=== PATIENT | female | born 1990 | race Caucasian/White ===

== ENCOUNTER 2022-10-05 08:00 | Outpatient (REF) | payer MEDICAID, SELFPAY ==
--- NOTE | 2022-10-05 10:51 | MHC.AU.HA1 ---
Hearing Aid Evaluation Date of Visit: 10/05/22 Historical Information:Description of Hearing: Normal hearing left ear; Within normal at 250 and 500 Hz precipitously sloping to profound sensorineural hearing loss with poor speech discrimination ability. Test and medical clearance from [facility]. Summary: Ruchi reportedly first noticed the hearing loss in her right ear in middle school. She continually had her ears cleaned of wax with no improvement in her hearing; however, she did not have a formal, diagnostic hearing evaluation until about six years ago. Amplification was recommended at that time; however, Ruchi was not mentally prepared to pursue hearing aids. More recently, she has been experiencing increased difficulty hearing and understanding in a variety of listening environments, particularly in the car as well as at work, especially when her poorer ear is facing the speaker. She reportedly has difficulty localizing sounds as well as deciphering speech in the presence of background noise. Ruchi is now ready to trial amplification due these difficulties and seems motivated to use and adapt to a CROS system. The etiology of Ruchi's unilateral hearing loss in currently unknown; however, she is reportedly waiting for an MRI to be schedule. Hearing Aid Prescription: Based on the individual?s shared listening needs, communication environments, dexterity, desire for connectivity, and personal preferences, the following prescription for amplification has been made: Right ear: Make, Model, Color: Phonak CROS P-R Battery Size: Rechargeable Monorail Charger Operator/Slim Tube: 1 Cros Wire Type of Earmold/Dome/CShell/SlimTip: Small open dome Left ear: Left ear prescription to be same as Right Hearing Aid above: Make, Model, Color: Phonak [place] P70-R Battery Size: Rechargeable Monorail Charger Operator/Slim Tube: 1S Type of Earmold/Dome/CShell/SlimTip: Small open dome Plan of Care: Patient wishes to purchase hearing aids as prescribed Action Taken/Action Needed: Hearing Instrument Fitting to be scheduled when materials arrive Comments: *Need to wait to have [facility] Referral # before ordering hearing aids* Primary Diagnosis: H90.41 SNHL Unilateral Right Ear, W/Unrestricted Contralateral Hearing Signature: Provider: Kai Flynn, [facility]
== END 2022-10-05 08:01 | disposition home or self-care (01) ==
LOC: HO.HAP 08:00
PROVIDERS: Visit Provider Family Medicine
DX: Z46.1 Encounter for fitting and adjustment of hearing aid (principal); H90.41 Sensorineural hearing loss, unilateral, right ear, with unrestricted hearing on the contralateral side
CPT/HCPCS: 92591

== ENCOUNTER 2023-12-23 08:47 | Inpatient (IN) | payer OTHER, MEDICAID, SELFPAY ==
[2023-12-23] VITALS (7 sets, daily range): BP systolic 109–136; BP diastolic 58–73; PULSE 75–127; RESP 18–22; TEMP 37.1–37.6; O2SAT 92–99; BMI 23.0
--- NOTE | ~2023-12-23 | XR_ITS ---
EXAMINATION: XR CHEST CLINICAL INFORMATION: SOB COMPARISON: None TECHNIQUE: 2 views of the chest FINDINGS: Lines and tubes: None. Right lower lobe consolidation raising suspicion for bronchopneumonia, recommend follow-up radiographs to ensure resolution. No pleural effusion. No pneumothorax. Normal cardiomediastinal silhouette. XR/XR chest 2V IMPRESSION: Right lower lobe consolidation raising suspicion for bronchopneumonia, recommend follow-up radiographs to ensure resolution. Electronically signed by: Shea Garrett MD 12/23/2023 12:04 PM EDT
--- NOTE | 2023-12-23 09:06 | ECG_ITS ---
Test Reason : SOB Blood Pressure : / mmHG Vent. Rate : 111 BPM Atrial Rate : 111 BPM P-R Int : 144 ms QRS Dur : 064 ms QT Int : 474 ms P-R-T Axes : 060 040 047 degrees QTc Int : 644 ms Sinus tachycardia Nonspecific ST and T wave abnormality Prolonged QT Abnormal ECG No previous ECGs available Referred By: Margret Do Electronically Signed By:MERE SAUNDERS
--- NOTE | 2023-12-23 09:07 | ED_ITS ---
HPI - General Adult General Chief complaint: Dyspnea Stated complaint: diff breathing Time Seen by Provider: 12/23/23 09:07 Source: patient Mode of arrival: ambulatory Limitations: no limitations History of Present Illness ED Provider: Margret Do PA-C HPI narrative: Patient is a 33 year old assigned female at with a history of methadone use, tobacco use, and childhood asthma presenting to the emergency department today with shortness of breath. Patient states that over the last 3 days she has had increased congestion and shortness of breath. Patient denies any dizziness, lightheadedness, abdominal pain, nausea, vomiting, fever, chills, blurry vision, double vision, loss of vision, chest pain, back pain, night sweats, pain with urination, increased urinary frequency, increased urinary urgency, blood in her urine or stool, syncope or a near syncopal episode, recent trauma or falls, bowel incontinence, bladder incontinence, or any other complaints at this time. Onset (ago): day(s) (3) Relieving factors: none Exacerbating factors: none Associated symptoms: shortness of breath Treatments prior to arrival: none Related Data Home Medications ?Medication ?Instructions ?Recorded ?Confirmed methadone 10 mg/mL oral concentrate 55 mg PO DAILY 12/23/23 Allergies Allergy/AdvReac Type Severity Reaction Status Date / Time No Known Allergies Allergy Verified 12/23/23 08:54 Review of Systems 2 Constitutional: Constitutional: Reports no additional constitutional complaints, Denies chills, Denies fever(s) and Denies night sweats Eyes: Eyes: Reports no additional eye complaints, Denies blurry vision, Denies change in vision, Denies diplopia, Denies eye discharge, Denies loss of vision and Denies eye pain ENT: Denies dizziness and Reports nasal congestion Cardiovascular: Cardiovascular: Reports no additional cardiovascular complaints, Denies chest pain, Denies lightheadedness, Denies Loss of Consciousness and Reports dyspnea Respiratory: Respiratory: Reports no additional respiratory complaints and Reports dyspnea Gastrointestinal: Gastrointestinal: Reports no additional gastrointestinal complaints, Denies abdominal pain, Denies melena, Denies hematochezia, Denies change in bowel habits and Denies change in stool character Genitourinary: Genitourinary: Denies hematuria, Denies urinary frequency, Denies dysuria, Denies urinary incontinence, Denies urinary hesitancy and Denies urinary urgency Musculoskeletal: Musculoskeletal: Reports no additional musculoskeletal complaints, Denies numbness and Denies tingling Neurologic: Denies dizziness, Denies loss of vision, Denies numbness and Denies tingling Psychiatric: Psychiatric: Reports no additional psychiatric complaints Endocrine: Endocrine: Reports no additional endocrine complaints Hematologic/Lymphatic: Hematologic/Lymphatic: Reports no additional hematologic/lymphatic complaints Allergic/Immunologic: Allergic/Immunologic: Reports no additional allergic/immunologic complaints [facility] Past Medical History Attestation statement: The following information was validated with the patient. Source: old records reviewed and nursing notes reviewed Social History Social History Smoked in Last 30 Days: Yes Use of substances other than those prescribed or required for medical reasons: No Advance Directives: No Advance Directives Information Provided: Yes Do you have a plan to hurt others: No Plan Physical Exam ED Vital Signs: Vital Signs - 24 hr 12/23/23 08:52 12/23/23 09:31 12/23/23 11:34 Temperature 98.7 F 99.6 F Pulse Rate 117 H 127 H 105 H Respiratory Rate 22 H 18 21 H Blood Pressure 123/58 L 122/68 Pulse Oximetry 92 93 Oxygen Delivery Method Room Air Room Air 12/23/23 12:48 12/23/23 13:11 Temperature 99.2 F Pulse Rate 119 H 90 Respiratory Rate 22 H 20 Blood Pressure 136/73 Pulse Oximetry 95 94 Oxygen Delivery Method Room Air Room Air BMI result Body Mass Index 23.0 Const General: cooperative, no acute distress, alert and awake Nutritional Appearance: well nourished Orientation/consciousness: patient oriented x3 Limitations: no limitations [facility] Head: Yes normal to inspection and Yes atraumatic Ears: hearing grossly normal bilaterally and external ears normal General nose exam: Normal external nose present, no nasal discharge noted and no epistaxis Face and sinus: Yes normal facial exam, No abrasion and No laceration Mouth: Normal oral and palatal mucosa present, no drooling and no muffled voice Eyes General: appearance normal, both eyes and all related structures Periorbital: periorbital findings normal Eyelids: Yes eyelids normal Conjunctivae: conjunctivae normal Pupils: Equal, round and reactive pupils present EOM: EOMs intact bilaterally Neck Neck: Yes normal visual inspection, Yes full ROM and Yes no lymphadenopathy Chest Chest palpation & inspection: normal inspection of the chest Resp Effort & Inspection: normal respiratory effort and able to speak in complete sentences Auscultation: diminished lung sounds diffuse GI Inspection: Yes normal to inspection Neuro General: patient oriented x3 and moves all extremities Cranial nerves: Yes Equal, round and reactive pupils present Cognition (Neuro): normal cognition Extrem General: Yes normal to inspection, Yes full ROM and Yes capillary refill normal Psych Appearance: grossly normal Mental Status: mental status grossly normal Affect: normal affect Attitude: cooperative Thought process: Normal thought process present Thought content: Normal thought content present Insight: Good insight present (Psych) Medications Administered Generic Name Dose Route Start Last Admin Trade Name Freq PRN Reason Stop Dose Admin Azithromycin 500 mg/ Sodium 250 mls @ 125 mls/hr 12/23/23 12:52 12/23/23 13:48 Chloride IV 12/23/23 14:51 125 mls/hr ONCE ONE Administration Discontinued Medications Generic Name Dose Route Start Last Admin Trade Name Freq PRN Reason Stop Dose Admin Albuterol/Ipratropium 3 ml 12/23/23 09:29 12/23/23 09:31 Albuterol/Iprat 2.5/0.5mg 3 Ml Ampul.Neb INHALE 12/23/23 09:30 3 ml ONCE ONE Administration Magnesium Sulfate/Dextrose 1 gm in 100 mls @ 100 mls/hr 12/23/23 10:58 12/23/23 12:32 Magnesium Sulfate/D5w IV 12/23/23 11:57 Infused ONCE ONE Infusion Sodium Chloride 1,000 mls @ 999 mls/hr 12/23/23 11:00 12/23/23 12:32 Ns IV 12/23/23 12:00 Infused .Q1H1M ANISH Infusion Ceftriaxone Sodium 1 gm/ 50 mls @ 100 mls/hr 12/23/23 12:52 12/23/23 13:18 Sodium Chloride IV 12/23/23 13:21 100 mls/hr ONCE ONE Administration Methylprednisolone Sodium Succinate 60 mg 12/23/23 09:13 12/23/23 10:00 Methylprednisolone Sod Succ 125 Mg/2 Ml Vial IVPUSH 12/23/23 09:14 60 mg ONCE ONE Administration Medical Decision Making Medical Decision Making MDM Narrative: Patient is a 33 year old assigned female at with a history of methadone use, tobacco use, and childhood asthma presenting to the emergency department today with increased shortness of breath. Patient's physical exam was as noted in the physical exam portion of this note. Patient's blood work was unremarkable. Patient's urine showed no acute process. Patient's EKG was unremarkable. Patient's chest x-ray showed a developing pneumonia. I explained my physical exam findings as well as all test results to the patient. I answered all questions asked by the patient. Patient received IV solu-medrol, magnesium, and multiple breathing treatments but continued to have shortness of breath. I spoke with the hospitalist team who agreed to admission. Patient's clinical presentation is not consistent with sepsis (@1330). Patient verbalized agreement and understanding with this treatment plan and admission. Differential Diagnosis Differential Diagnoses: The differential diagnosis associated with the presentation includes SOB Pneumonia Asthma exacerbation Admission/Observation Consideration of admission/observation: Escalation of care including admission/observation considered Patient admitted. Consult Healthcare Provider Management of the patient was discussed with: Hospitalist (agreed to admission as noted in the MDM Rationale portion of this note.) Lab Data [facility] Lab Attestation statement: I reviewed the patient's lab results. My interpretation of these results are in the MDM Rationale portion of this note. 12/23/23 09:59 12/23/23 09:59 Labs: Lab Results 12/23/23 12/23/23 12/23/23 Range/Units 09:59 10:04 12:55 WBC 10.8 (4.8-10.8) X10*3/uL RBC 4.23 (4.20-5.50) X10*6/uL Hgb 12.7 (12.0-16.0) g/dl Hct 36.1 L (37.0-47.0) % MCV 85.3 (80.0-98.0) fL MCH 30.0 (27.0-33.0) pg MCHC 35.2 H (31.0-35.0) g/dl RDW 11.4 (11.0-16.0) % Plt Count 219 (160-400) X10*3/uL MPV 10.2 (9.4-12.3) fL Immature Gran % (Auto) 0.5 H (0.0-0.4) % Neut % (Auto) 86.3 H (45-73) % Lymph % (Auto) 7.8 L (20-40) % [place] % (Auto) 5.0 (2-11) % Eos % (Auto) 0.1 (0-4) % Baso % (Auto) 0.3 (0-2) % Lymph # (Auto) 0.8 L (1.2-4.9) X10*3/uL [place] # (Auto) 0.5 (0.1-1.2) X10*3/uL Eos # (Auto) 0.0 (0.0-0.4) X10*3/uL Baso # (Auto) 0.0 (0.0-0.2) X10*3/uL Abs Immat Gran (auto) 0.05 H (0.00-0.03) X10*3/uL Absolute Neuts (auto) 9.3 H (2.0-8.3) x10*3/uL Absolute Nucleated RBC 0.000 (0.0-0.012) X10*3/uL Nucleated RBC % (auto) 0.0 (0.0-0.2) /100WBC D-Dimer High Sensitivty 186 NG/ML VBG pH 7.36 (7.32-7.43) VBG pCO2 50 mmHg VBG pO2 36 mmHg VBG HCO3 28 H (22-26) mmol/L VBG O2 Saturation 62.0 % VBG Base Excess 2.3 mmol/L Sodium 139 (135-145) mmol/L Potassium 3.5 (3.3-5.1) mmol/L Chloride 104 (96-108) mmol/L Carbon Dioxide 26 (22-29) mmol/L Anion Gap 13 (12-20) BUN 8 L (9-16) mg/dL Creatinine 0.85 (0.5-1.4) mg/dL Estim Creat Clear Calc 90.6 Estimated GFR > 60 Random Glucose 110 (60-115) mg/dL Calcium 9.2 (8.4-10.2) mg/dL Magnesium 1.9 (1.6-2.6) mg/dL Total Bilirubin 0.4 (0.0-1.0) mg/dL AST 16 (5-31) U/L ALT 12 (0-31) U/L Alkaline Phosphatase 58 (39-117) U/L Troponin I High Sens < 2.7 (<3.5-17.0) ng/L Total Protein 7.4 (6.5-8.0) g/dL Albumin 4.4 (3.5-5.0) g/dL Urine Color Yellow Urine Appearance Clear Urine pH 6.0 (5.0-9.0) Ur Specific [place] 1.010 (1.005-1.025) Urine Protein Negative (Neg-Trace) mg/dL Urine Glucose (UA) Negative (Negative) mg/dL Urine Ketones Negative (Negative) mg/dL Urine Blood Negative (Negative) Urine Nitrite Negative (Negative) Ur Leukocyte Esterase Trace H (Negative) Urine RBC 0-2 (0-2) /HPF Urine WBC 0-5 (0-5) /HPF Ur Squamous Epith Cells 6-10 (0-2) /HPF Urine Bacteria None Seen (None Seen) Hyaline Casts 0-2 (0-2) /LPF Influenza Type A (PCR) NEGATIVE (Negative) Influenza Type B (PCR) NEGATIVE (Negative) RSV RNA Qual (PCR) NEGATIVE (Negative) SARS-CoV-2 RNA (RT-PCR) NEGATIVE (Negative) Independent Interpretation I performed an independent interpretation of an: EKG and Plain X-Ray Interpretation: My interpretation is in agreement with the radiologist's impression of this imaging study. L EXAMINATION: XR CHEST CLINICAL INFORMATION: SOB COMPARISON: None TECHNIQUE: 2 views of the chest FINDINGS: Lines and tubes: None. Right lower lobe consolidation raising suspicion for bronchopneumonia, recommend follow-up radiographs to ensure resolution. No pleural effusion. No pneumothorax. Normal cardiomediastinal silhouette. XR/XR chest 2V IMPRESSION: Right lower lobe consolidation raising suspicion for bronchopneumonia, recommend follow-up radiographs to ensure resolution. Electronically signed by: Shea Garrett MD 12/23/2023 12:04 PM EDT Dictated By: Shea Garrett MD Signed By: Electronically signed by Shea Garrett MD 12/23/23 1204 Vent. Rate: 111 BPM Atrial Rate: 111 BPM P-R Int: 144 ms QRS Dur: 064 ms QT Int: 474 ms P-R-T Axes: 060 040 047 degrees QTc Int: 644 ms Sinus tachycardia Prolonged QT Abnormal ECG No previous ECGs available DD/ 1024 Radiology Impression Discussion of test interpretation with radiology: I have reviewed the radiologist's reading. Critical Care Time Critical Care Time Critical Care Time: Yes Total Critical Care Time: 49 Attestation: I spent 49 minutes of Critical Care Time with this patient. This does not include time spent on separately reported billable procedures. Discharge Plan Discharge Clinical Impression: Pneumonia, Asthma with exacerbation Patient Disposition: Admitted As Inpatient
[2023-12-23] MEDS: Albuterol/Iprat 2.5/0.5MG 3 ML AMPUL.NEB INHALE (09:31)
--- NOTE | 2023-12-23 09:49 | PC.NURSE ---
Pt difficult IV access. Delay in medication. aware
[2023-12-23] MEDS: methylPREDNISolone Sod Succ 125 MG/2 ML VIAL 60 MG IVPUSH ×3 (10:00→21:12)
[2023-12-23 10:03] LABS: MANUAL DIFF FLAG NO
[2023-12-23 10:07] LABS: Venous Blood Gas Refer to POC result
[2023-12-23 10:08] LABS: VBG Base Excess 2.3 mmol/L; VBG HCO3 28 mmol/L (22-26); VBG pCO2 50 mmHg; VBG pH 7.36 (7.32-7.43); VBG pO2 36 mmHg
[2023-12-23 10:09] LABS: Basophils Percent Auto 0.3 % (0-2); Eosinophils Percent Auto 0.1 % (0-4); Hematocrit 36.1 % (37.0-47.0); Hemoglobin 12.7 g/dl (12.0-16.0); Imm Gran Abs Auto 0.05 X10*3/uL (0.00-0.03); Imm Gran Pct Auto 0.5 % (0.0-0.4); Lymphocytes Absolute Auto 0.8 X10*3/uL (1.2-4.9); Lymphocytes Percent Auto 7.8 % (20-40); Mean Corpuscular HGB Conc 35.2 g/dl (31.0-35.0); Mean Corpuscular Volume 85.3 fL (80.0-98.0); Mean Platelet Volume 10.2 fL (9.4-12.3); Monocytes Absolute Auto 0.5 X10*3/uL (0.1-1.2); Neutrophils Absolute Auto 9.3 x10*3/uL (2.0-8.3); Neutrophils Percent Auto 86.3 % (45-73); Platelet Count 219 X10*3/uL (160-400); Red Blood Count 4.23 X10*6/uL (4.20-5.50); Red Cell Distribution Width 11.4 % (11.0-16.0); White Blood Count 10.8 X10*3/uL (4.8-10.8)
[2023-12-23 10:22] LABS: D Dimer High Sensitivity 186 NG/ML
[2023-12-23 10:25] LABS: Alanine Aminotransferase 12 U/L (0-31); Albumin Level 4.4 g/dL (3.5-5.0); Alkaline Phosphatase 58 U/L (39-117); Anion Gap 13 (12-20); Aspartate Amino Transferase 16 U/L (5-31); Bilirubin Total 0.4 mg/dL (0.0-1.0); Blood Urea Nitrogen 8 mg/dL (9-16); Calcium 9.2 mg/dL (8.4-10.2); Carbon Dioxide 26 mmol/L (22-29); Chloride 104 mmol/L (96-108); Creatinine Clr Calc Pharmacy 90.6; Estimated Glomerular Filt Rate > 60; Glucose Random 110 mg/dL (60-115); Magnesium 1.9 mg/dL (1.6-2.6); Potassium 3.5 mmol/L (3.3-5.1); Sodium 139 mmol/L (135-145); Total Protein 7.4 g/dL (6.5-8.0)
[2023-12-23 10:36] LABS: Troponin-I High Sensitivity < 2.7 ng/L (<3.5-17.0)
[2023-12-23 10:43] LABS: Influenza A PCR NEGATIVE (Negative); Influenza B PCR NEGATIVE (Negative); Resp Syncy Virus RNA Qual PCR NEGATIVE (Negative); SARS COV2 PCR INHOUSE NEGATIVE (Negative)
[2023-12-23] MEDS: 0.9 % Sodium Chloride 1,000 ML 999 ML IV (11:34)
[2023-12-23] MEDS: Magnesium Sulfate/D5W 1 GM/100 ML PIGGYBACK IV (11:34)
[2023-12-23 13:02] LABS: Appearance Urine Clear; Color Urine Yellow; Glucose Urine UA Negative (Negative); Leukocyte Esterase Urine Trace (Negative); Nitrite Urine Negative (Negative); UMIC TRIGGER UACC YES; Urine Blood Negative (Negative); Urine Ketones Negative (Negative); Urine Protein Negative (Neg-Trace)
--- NOTE | 2023-12-23 13:04 | PC.NURSE ---
pt ambulated around the ed and spo2 maintained 93-94% pt initially felt ok to go home but then walked to the bathroom and returned with increased work of breathing and sob, ls with coarse wheeze throughout, jacques WILEY aware and plan for admission
[2023-12-23 13:07] LABS: Bacteria Urine None Seen (None Seen); Hyaline Casts Urine 0-2 /LPF (0-2); RBC Urine 0-2 /HPF (0-2); WBC Urine 0-5 /HPF (0-5)
[2023-12-23] MEDS: cefTRIAXone sodium 1 GM in 0.9 % Sodium Chloride 50 ML IV (13:18)
[2023-12-23] MEDS: Azithromycin 500 MG in 0.9 % Sodium Chloride 250 ML 125 MG IV (13:48)
--- NOTE | 2023-12-23 13:52 | P.HPHOSP_ITS ---
History of Present Illness Date of Service: 12/23/23 Chief Complaint: Shortness of breath 33 year old assigned female at with a history of methadone use, tobacco use, and childhood asthma presenting to the emergency department today with shortness of breath. Patient states that over the last 3 days she has had increased congestion and shortness of breath. She states that over the last 24 hours her cough has become productive of green mucus. She admits to smoking 5 cigarettes a day. In the emergency room, chest x-ray consistent with right lower lobe infiltrate Review of Systems 2 Review of Systems: States chest pain with cough; none with exertion. States shortness of breath with minimal exertion Denies fever chills Denies nausea vomiting diarrhea PMFSH Social History Smoked in Last 30 Days: Yes Use of substances other than those prescribed or required for medical reasons: No Advance Directives: No Advance Directives Information Provided: Yes Do you have a plan to hurt others: No Plan Meds Allergies Allergy/AdvReac Type Severity Reaction Status Date / Time No Known Allergies Allergy Verified 12/23/23 08:54 Active Medications: Current Medications Acetaminophen (Acetaminophen 325 Mg Tablet) 650 mg PO Q6H PRN PRN Reason: Pain, Mild (Pain Scale 1-3), fever or headache Calcium Carbonate (Calcium Carbonate 750 Mg Tab.Chew) 750 mg PO Q4H PRN PRN Reason: Heartburn Enoxaparin Sodium (Enoxaparin Sodium 40 Mg/0.4 Ml Syringe) 40 mg SUBCUT Q24H ANISH Azithromycin 500 mg/ Sodium (Chloride) 250 mls @ 125 mls/hr IV ONCE ONE Stop: 12/23/23 14:51 Last Admin: 12/23/23 13:48 Dose: 125 mls/hr Magnesium Hydroxide (Milk Of Magnesia 30 Ml Oral.Susp) 30 ml PO DAILY PRN PRN Reason: Constipation Melatonin (Melatonin 3 Mg Tablet) 6 mg PO BEDTIME PRN PRN Reason: Insomnia Ondansetron HCl (Ondansetron Hcl 4 Mg/2 Ml Vial) 4 mg IVPUSH Q8H PRN PRN Reason: Nausea and Vomiting Sodium Chloride (0.9 % Sodium Chloride Flush 3 Ml Syringe) 3 ml IVFLUSH QSHIFT ANISH Physical Exam 2 Vital Signs and Narrative: Vital Signs: Last Vital Signs Temp 99.2 F 12/23/23 13:11 Pulse 90 12/23/23 13:11 Resp 20 12/23/23 13:11 BP 136/73 12/23/23 12:48 Pulse Ox 94 12/23/23 13:11 O2 Del Method Room Air 12/23/23 13:11 BMI result Body Mass Index 23.0 Const: Other: Awake alert able to speak in short sentences only Resp: Other: Diminished bilaterally with dense crackles right lower lobe; diffuse expiratory wheezes lower lobes. Accessory muscle use Cardio: Other: No S4; positive S1-S2; no S3 murmurs rubs or gallops GI: Other: Soft nontender nondistended normoactive bowel sounds Neuro: Other: Cranial nerves 2-12 grossly intact as tested. Motor is 5/5 all extremities. Sensation is intact. Gait not observed Extrem: Other: No edema bilaterally Results Labs 12/23/23 09:59 12/23/23 09:59 Labs: Laboratory Results - last 24 hr 12/23/23 12/23/23 12/23/23 09:59 10:04 12:55 MCV 85.3 MCH 30.0 MCHC 35.2 H RDW 11.4 Plt Count 219 MPV 10.2 Immature Gran % (Auto) 0.5 H Neut % (Auto) 86.3 H Lymph % (Auto) 7.8 L [place] % (Auto) 5.0 Eos % (Auto) 0.1 Baso % (Auto) 0.3 Lymph # (Auto) 0.8 L [place] # (Auto) 0.5 Eos # (Auto) 0.0 Baso # (Auto) 0.0 Abs Immat Gran (auto) 0.05 H Absolute Neuts (auto) 9.3 H Absolute Nucleated RBC 0.000 Nucleated RBC % (auto) 0.0 D-Dimer High Sensitivty 186 VBG pH 7.36 VBG pCO2 50 VBG pO2 36 VBG HCO3 28 H VBG O2 Saturation 62.0 VBG Base Excess 2.3 Anion Gap 13 Estim Creat Clear Calc 90.6 Estimated GFR > 60 Random Glucose 110 Calcium 9.2 Magnesium 1.9 Total Bilirubin 0.4 AST 16 ALT 12 Alkaline Phosphatase 58 Troponin I High Sens < 2.7 Total Protein 7.4 Albumin 4.4 Urine Color Yellow Urine Appearance Clear Urine pH 6.0 Ur Specific [place] 1.010 Urine Protein Negative Urine Glucose (UA) Negative Urine Ketones Negative Urine Blood Negative Urine Nitrite Negative Ur Leukocyte Esterase Trace H Urine RBC 0-2 Urine WBC 0-5 Ur Squamous Epith Cells 6-10 Urine Bacteria None Seen Hyaline Casts 0-2 Influenza Type A (PCR) NEGATIVE Influenza Type B (PCR) NEGATIVE RSV RNA Qual (PCR) NEGATIVE SARS-CoV-2 RNA (RT-PCR) NEGATIVE Imaging Radiologist's Impressions: Impressions Chest X-Ray 12/23/23 10:24 IMPRESSION: Right lower lobe consolidation raising suspicion for bronchopneumonia, recommend follow-up radiographs to ensure resolution. Electronically signed by: Shea Garrett MD 12/23/2023 12:04 PM EDT RP Assessment and Plan (1) Pneumonia: Qualifiers: Pneumonia type: due to unspecified organism Laterality: right Lung location: lower lobe of lung Qualified Code(s): J18.9 - Pneumonia, unspecified organism Status: Acute (2) Opioid use disorder: Status: Acute Plan 33-year-old female presents with proximally 48 hours of worsening cough shortness of breath and overall body aches which have progressed to productive cough of green sputum. Admits to remote history of childhood asthma however uses no inhalers. Endorses tobacco abuse. .. Five cigarettes a day 1. Right lower lobe pneumonia -ceftriaxone/azithromycin (1) -methylprednisolone 60 mg IV q.6 hours -titrate O2 to minimize retractions and keep sats greater than or equal to 92% -DuoNebs as needed q.4 hours while awake 2. Opioid use disorder -methadone 55 mg daily -will consult addiction Medicine to verify dosing Full code Lovenox Patient will require at least 2 midnights going forward for IV antibiotics to treat right lower lobe pneumonia. This can not be achieved a lesser acute setting Quality Stroke Does the patient have a stroke diagnosis?: No VTE Prior VTE?: No VTE Risk Level:: Medical - moderate - high VTE Device Contraindication: Treatment Not Indicated VTE Drug Contraindication: N/A - Med Ordered
--- NOTE | 2023-12-23 14:02 | PHA.MEDREC ---
Addendum entered by Darlyn Colón RPh 12/23/23 14:29: MED REC REVIEWED BY DYANA Original Note: Pharmacy Consult ? Medication Reconciliation Pharmacy has completed the medication reconciliation. Patient reports no medications besides methadone 55 mg last taken this morning from [facility]. She took robitussin last night to help with her symptoms but does not normally take.
[2023-12-23] MEDS: Enoxaparin Sodium 40 MG/0.4 ML SYRINGE SUBCUT (14:57)
[2023-12-23] MEDS: 0.9 % Sodium Chloride Flush 3 ML SYRINGE IVFLUSH (16:45)
--- NOTE | 2023-12-23 17:03 | PC.NURSE ---
verbal report given to overflow ALVIN Cook.
[2023-12-23] MEDS: ondansetron HCL 4 MG/2 ML VIAL IVPUSH (18:43)
--- NOTE | 2023-12-23 23:02 | PC.NURSE ---
pt resting comfortably at this time with eyes closed, breathing even and unlabored. minimal coughing tonight. no apparent distress noted. call espinal w/in reach
[2023-12-24] VITALS (8 sets, daily range): BP systolic 108–128; BP diastolic 54–63; PULSE 80–91; RESP 14–20; TEMP 36.1–36.7; O2SAT 93–97; BMI 22.9
--- NOTE | 2023-12-24 01:29 | PC.NURSE ---
This RN assumed care of patient @2300. PT resting comfortably in room. eyes closed, resp even- unlabored. No cough, apparent distress noted. Call espinal within reach. Plan of care ongoing.
--- NOTE | 2023-12-24 02:32 | MHC.EDTECH ---
patient standby assisted to bathroom. independent with care. patient also requested pain medication.
[2023-12-24] MEDS: methylPREDNISolone Sod Succ 125 MG/2 ML VIAL 60 MG IVPUSH ×4 (03:40→19:30)
[2023-12-24] MEDS: 0.9 % Sodium Chloride Flush 3 ML SYRINGE IVFLUSH ×4 (03:41→23:29)
--- NOTE | 2023-12-24 07:34 | HE.PHANOTE ---
Addendum entered by Barbara Little [facility] 12/24/23 07:39: iLz's dose is 55mg. Original Note: Methadone: Pt receives from [facility], denae Puckett [phone], . Per Laura Jones at facility: last dose given Dec 18, 2023 with 6 take home bottles. Her last dose taken was 12/23/23 in the morning.
[2023-12-24] MEDS: methADONE HCl 20 MG/2 ML ORAL.CONC 55 MG PO (08:08)
[2023-12-24] MEDS: Azithromycin 500 MG in 0.9 % Sodium Chloride 250 ML 125 MG IV (08:51)
[2023-12-24] MEDS: Albuterol/Iprat 2.5/0.5MG 3 ML AMPUL.NEB INHALE ×3 (11:20→20:01)
--- NOTE | 2023-12-24 12:46 | HO.PM.IMPN ---
Subjective Subjective Date of Service: 12/24/23 Interval History: Breathing somewhat improved however only able to speak in short sentences Review of Systems States chest pain with cough; none with exertion. States shortness of breath with minimal exertion Denies fever chills Denies nausea vomiting diarrhea Physical Exam Vital Signs: Vital Signs: Last Vital Signs Temp 97.0 F 12/24/23 09:00 Pulse 80 12/24/23 11:25 Resp 14 12/24/23 11:25 BP 112/62 12/24/23 09:00 Pulse Ox 93 12/24/23 09:00 O2 Del Method Nasal Cannula 12/24/23 09:00 O2 Flow Rate 2.0 12/24/23 09:00 BMI result Body Mass Index 22.9 Const: Other: Awake alert able to speak in short sentences only Resp: Other: Diminished bilaterally with dense crackles right lower lobe; diffuse expiratory wheezes lower lobes. Accessory muscle use Cardio: Other: No S4; positive S1-S2; no S3 murmurs rubs or gallops GI: Other: Soft nontender nondistended normoactive bowel sounds Neuro: Other: Cranial nerves 2-12 grossly intact as tested. Motor is 5/5 all extremities. Sensation is intact. Gait not observed Extrem: Other: No edema bilaterally Objective Data Active Medications Acetaminophen (Acetaminophen 325 Mg Tablet) 650 mg PO Q6H PRN PRN Reason: Pain, Mild (Pain Scale 1-3), fever or headache Albuterol/Ipratropium (Albuterol/Iprat 2.5/0.5mg 3 Ml Ampul.Neb) 3 ml INHALE RQ4H WHILE AWAKE [facility] Last Admin: 12/24/23 11:20 Dose: 3 ml Documented By: MARLYN Calcium Carbonate (Calcium Carbonate 750 Mg Tab.Chew) 750 mg PO Q4H PRN PRN Reason: Heartburn Enoxaparin Sodium (Enoxaparin Sodium 40 Mg/0.4 Ml Syringe) 40 mg SUBCUT Q24H [facility] Last Admin: 12/23/23 14:57 Dose: 40 mg Documented By: ERA Ceftriaxone Sodium 1 gm/ (Sodium Chloride) 50 mls @ 100 mls/hr IV Q24H [facility] Last Admin: 12/23/23 14:58 Dose: Not Given Documented By: ERA Non-Admin Reason: Previously Administered Azithromycin 500 mg/ Sodium (Chloride) 250 mls @ 125 mls/hr IV DAILY [facility] Last Infusion: 12/24/23 10:52 Dose: Infused Documented By: JENELLE Magnesium Hydroxide (Milk Of Magnesia 30 Ml Oral.Susp) 30 ml PO DAILY PRN PRN Reason: Constipation Melatonin (Melatonin 3 Mg Tablet) 6 mg PO BEDTIME PRN PRN Reason: Insomnia Methylprednisolone Sodium Succinate (Methylprednisolone Sod Succ 125 Mg/2 Ml Vial) 60 mg IVPUSH Q6H [facility] Last Admin: 12/24/23 08:45 Dose: 60 mg Documented By: VINICIUS Ondansetron HCl (Ondansetron Hcl 4 Mg/2 Ml Vial) 4 mg IVPUSH Q8H PRN PRN Reason: Nausea and Vomiting Last Admin: 12/23/23 18:43 Dose: 4 mg Documented By: HARRY Sodium Chloride (0.9 % Sodium Chloride Flush 3 Ml Syringe) 3 ml IVFLUSH QSHIFT [facility] Last Admin: 12/24/23 08:50 Dose: 3 ml Documented By: VINICIUS Labs 12/23/23 09:59 12/23/23 09:59 Labs: Laboratory Results - last 24 hr 12/23/23 12:55 Urine Color Yellow Urine Appearance Clear Urine pH 6.0 Ur Specific [place] 1.010 Urine Protein Negative Urine Glucose (UA) Negative Urine Ketones Negative Urine Blood Negative Urine Nitrite Negative Ur Leukocyte Esterase Trace H Urine RBC 0-2 Urine WBC 0-5 Ur Squamous Epith Cells 6-10 Urine Bacteria None Seen Hyaline Casts 0-2 Assessment and Plan (1) Pneumonia: Status: Acute (2) Asthma with exacerbation: Status: Acute Plan 33-year-old female presents with proximally 48 hours of worsening cough shortness of breath and overall body aches which have progressed to productive cough of green sputum. Admits to remote history of childhood asthma however uses no inhalers. Endorses tobacco abuse. .. Five cigarettes a day 1. Right lower lobe pneumonia -ceftriaxone/azithromycin (2) -methylprednisolone 60 mg IV q.6 hours.. Additional 24 hours and re-evaluate -titrate O2 to minimize retractions and keep sats greater than or equal to 92% -DuoNebs as needed q.4 hours while awake 2. Opioid use disorder -methadone 55 mg daily -will consult addiction Medicine to verify dosing Full code Lovenox Patient will require at least 2 midnights going forward for IV antibiotics to treat right lower lobe pneumonia. This can not be achieved a lesser acute setting Quality Stroke Does the patient have a stroke diagnosis?: No VTE Prior VTE?: No VTE Risk Level:: Medical - moderate - high VTE Device Contraindication: Treatment Not Indicated VTE Drug Contraindication: N/A - Med Ordered
[2023-12-24] MEDS: Enoxaparin Sodium 40 MG/0.4 ML SYRINGE SUBCUT (13:02)
[2023-12-24] MEDS: cefTRIAXone sodium 1 GM in 0.9 % Sodium Chloride 50 ML IV (13:09)
--- NOTE | 2023-12-24 16:02 | MHC.CM.PN ---
PT REPORTS SHE LIVES WITH HER S/O AND IS INDEPENDENT WITH CARE SHE HAS NO DME AND NO SERVICES PT DECLINES TO COMPLETE A HCP PCP: DIAN MCCLAIN DCP: HOME NO SERVICES VIA PRIVATE TRANSPORT
[2023-12-24] MEDS: Melatonin 3 MG TABLET 6 MG PO (21:09)
[2023-12-25] MEDS: methylPREDNISolone Sod Succ 125 MG/2 ML VIAL 60 MG IVPUSH ×2 (02:11→07:26)
[2023-12-25 03:39] VITALS: BP 117/60; PULSE 63; RESP 18; TEMP 36.6; O2SAT 96
[2023-12-25] MEDS: methADONE HCl 20 MG/2 ML ORAL.CONC 55 MG PO (07:25)
[2023-12-25] MEDS: 0.9 % Sodium Chloride Flush 3 ML SYRINGE IVFLUSH (07:26)
[2023-12-25 07:33] VITALS: BP 119/62; PULSE 66; RESP 18; TEMP 36.3; O2SAT 94
[2023-12-25] MEDS: Albuterol/Iprat 2.5/0.5MG 3 ML AMPUL.NEB INHALE ×2 (07:54→11:44)
[2023-12-25 07:55] VITALS: PULSE 74; RESP 18; O2SAT 93
[2023-12-25] MEDS: Azithromycin 500 MG in 0.9 % Sodium Chloride 250 ML 125 MG IV (08:45)
--- NOTE | 2023-12-25 10:40 | MHC.CM.PN ---
Per MD rounds patient medically cleared for dc home self care. Patient's boyfriend will transport home. RN aware.
[2023-12-25 11:46] VITALS: PULSE 70; RESP 15; O2SAT 93
--- NOTE | 2023-12-25 12:24 | P.DS_ITS ---
DS: Providers Provider Date of Service: 12/25/23 Date of admission: 12/23/23 13:47 Date of discharge: 12/25/23 Primary care physician: Micah Arreola MD DS: Diagnosis Discharge Diagnosis (1) Pneumonia: Status: Acute (2) Asthma with exacerbation: Status: Acute DS: Summary Hospital Course Hospital Course: 33 year old assigned female at with a history of methadone use, tobacco use, and childhood asthma presenting to the emergency department today with shortness of breath. Patient states that over the last 3 days she has had increased congestion and shortness of breath. She states that over the last 24 hours her cough has become productive of green mucus. She admits to smoking 5 cigarettes a day. In the emergency room, chest x-ray consistent with right lower lobe infiltrate Hospital course Patient admitted to general medical floor and started on ceftriaxone/azithromycin and IV methylprednisolone. Over the course of the next 48 hours she improved to the point of no oxygen requirement and requesting discharge. At this point she is medically acceptable for discharge and she will be discharged to complete an oral course of doxycycline along with prednisone taper. Respiratory therapy has arrange for a nebulizer to be delivered to her house and Mati have been called into the pharmacy Time Attestation Discharge Coordination Time (in mins): 35 Quality: Safe Use of Opioids Does Pt have an Active Cancer Diagnosis on the Problem List?: No Quality: Stroke Does the patient have a stroke diagnosis?: No Physical Exam Vital Signs: Vital Signs: Last Vital Signs Temp 97.4 F 12/25/23 07:33 Pulse 70 12/25/23 11:46 Resp 15 12/25/23 11:46 BP 119/62 12/25/23 07:33 Pulse Ox 94 12/25/23 07:33 O2 Del Method Room Air 12/25/23 07:33 O2 Flow Rate 2.0 12/24/23 09:00 BMI result Body Mass Index 22.9 Const: Other: Awake alert able to speak in short sentences only Resp: Other: Diminished bilaterally with dense crackles right lower lobe; diffuse expiratory wheezes lower lobes. Accessory muscle use Cardio: Other: No S4; positive S1-S2; no S3 murmurs rubs or gallops GI: Other: Soft nontender nondistended normoactive bowel sounds Neuro: Other: Cranial nerves 2-12 grossly intact as tested. Motor is 5/5 all extremities. Sensation is intact. Gait not observed Extrem: Other: No edema bilaterally Discharge Plan Discharge Anticipated Discharge Date/Time: 12/25/23 12:12 Patient Disposition: Home, Self-Care Discharge Diagnosis: Pneumonia Referrals: Micah Arreola MD [Primary Care Provider] - 1 Week Discharge Medications: New ipratropium-albuterol 0.5 mg-3 mg(2.5 mg base)/3 mL Solution For Nebulization 3 ml inhalation RQ4H WHILE AWAKE Qty: 270 0RF doxycycline hyclate 100 mg capsule 100 mg PO BID Qty: 10 0RF prednisone 10 mg tablet See Rx Instructions .Route .COMPLEX Qty: 45 0RF Rx Instructions: 10 mg orally; 5 tabs p.o. daily x3 days; 4 tabs p.o. daily x3 days; 3 tabs daily x3 days; 2 tabs daily x3 days; 1 tab daily x3 days Continued methadone 10 mg/mL Concentrate 55 mg PO DAILY Discharge Orders: Discharge Order (Routine); Ordered 12/25/23 Ordered By: Fredrick Richardson Diet: Advance to usual diet Activity on Discharge: As tolerated Stand Alone Forms: Patient Portal Discharge page, Work/School Release Print Language: Kinyarwanda Care Plan Goals: Resume all previous medicines as taken prior to hospital Health Concerns: Complete course of doxycycline as ordered along with prednisone taper. A nebulizer will be delivered to her house and he can take it treatments 4 times a day as needed until resolved Plan of Treatment: Quit smoking Assessment: See discharge summary Patient Instructions: Ceftriaxone (By injection), Azithromycin (By injection), Community Acquired Pneumonia (GEN)
--- NOTE | 2023-12-25 16:13 | P.CDIM_ITS ---
PROVIDER RESPONSE TEXT: To clarify, the appropriate diagnosis supported by the clinical indicators: Mild intermittent: with exacerbation QUERY TEXT: PHYSICIAN'S DOCUMENTATION REQUEST Date of Query: 12/25/2023 11:39 AM EDT Patient Name: FIONA BARTLETT Admit Date: 12/23/2023 Dear Fredrick Richardson DO, A review of the medical record indicates additional documentation may be needed. Please review below and update the documentation accordingly. The diagnosis of asthma was documented in the record on 12/24/23 . Additional clinical indicators from the record include: admit with pneumonia, SOB remote history of childhood asthma however uses no inhalers Based on the above, please clarify in the Progress Notes further specificity regarding the type and a cuity of the asthma: Mild intermittent Please specify if with or without acute exacerbation or status asthmaticus Mild persistent Please specify if with or without acute exacerbation or status asthmaticus Moderate persistent Please specify if with or without acute exacerbation or status asthmaticus Severe persistent Please specify if with or without acute exacerbation or status asthmaticus Exercise induced Please specify if with or without acute exacerbation or status asthmaticus Chronic obstructive asthma and indicate if with acute lower respiratory infection Please specify if with or without acute exacerbation or status asthmaticus Asthma with underlying COPD and indicate if with acute lower respiratory infection Please specify if with or without acute exacerbation or status asthmaticus Other (explain) Clinically unable to determine (explain) Thank you, Sarahi Dobbins RN Use of terms such as suspected, likely, concern for, or probable (associated with a specific diagnosi s that is being evaluated, monitored, or treated as if it exists) are acceptable and can be coded in the inpatient se tting, when documented at the time of discharge. Please use your independent medical judgment in providing your response. THIS QUERY IS PART OF THE PERMANENT MEDICAL RECORD
== END 2023-12-25 14:45 | disposition home or self-care (01) | DRG 202 ==
LOC: HO.ED 12:52 → HO.EDOVER 14:00 → HO.S3 12-24 07:34
PROVIDERS: Physician Assistant Medical; Admitting Provider Hospitalist; Emergency Provider Emergency Medicine; PCP Family Medicine; Visit Provider Hospitalist
DX: J45.21 Mild intermittent asthma with (acute) exacerbation (principal); J18.9 Pneumonia, unspecified organism; F11.20 Opioid dependence, uncomplicated; F17.210 Nicotine dependence, cigarettes, uncomplicated; Z71.6 Tobacco abuse counseling; Z20.822 Contact with and (suspected) exposure to COVID-19
CPT/HCPCS: 0241U; 36415; 71046; 80053; 81001; 81003; 82803; 83735; 84484; 85025; 85379; 93005; 94640; 99285; J0456; J0696; J1650; J2405; J2919; J3475

== ENCOUNTER → 2023-12-23 11:06 | Outpatient (BNV) | payer OTHER, MEDICAID, SELFPAY | PROVIDERS: Emergency Provider Emergency Medicine; PCP Family Medicine; Visit Provider Hospitalist | DX: J18.9 Pneumonia, unspecified organism (principal); F11.90 Opioid use, unspecified, uncomplicated | CPT/HCPCS: 99223; 99232; 99239 ==